=== PATIENT | female | born 1995 | race Caucasian/White ===

== ENCOUNTER 2021-08-10 12:41 | Emergency (ER) | payer OTHER ==
[2021-08-10 12:59] VITALS: BP 119/63; PULSE 76; TEMP 97; BMI 18.5
[2021-08-10] MEDS ORDERED: ACETAMINOPHEN 500 MG TABLET (FP) PO ONE (15:28)
[2021-08-10] MEDS ORDERED: ACETAMINOPHEN 325 MG TABLET (FP) ONE (15:38)
== END 2021-08-10 15:49 | disposition home or self-care (01) ==
LOC: JERFT 12:41 → JER 12:41 → JERFT 15:49
DX: M54.2 Cervicalgia (principal)
CPT/HCPCS: 70450-TC; 72125-TC; 99284-25